=== PATIENT | female | born 1985 | race Caucasian/White ===

== ENCOUNTER 2017-03-08 17:42 | Emergency (ER) | payer OTHER ==
[~2017-03-08] VITALS: Ht 162.6 cm; Wt 74.9 kg
[~2017-03-08 17:42] MED LIST: MTRUNK PO; TYLUNK PO
[2017-03-08 17:52] VITALS: TEMP 37.4; Ht 162.6 cm; Wt 74.9 kg
[2017-03-08] MEDS ORDERED: BUPR8MIS SL (18:10)
[2017-03-08] MEDS ORDERED: DIPH1TAB98 PO (18:11)
[2017-03-08] MEDS ORDERED: DiphenhydrAMINE HCL 50 MG/ML VIAL IV STA (18:11)
[2017-03-08] MEDS ORDERED: ACETAMINOPHEN 325 MG TAB PO STA (18:11)
[2017-03-08 18:25] LABS: BASO % 0.6 %; BASO ABS # 0.05 K/uL (0-0.2); COMPLETE YES; EOS % 0.7 %; HEMATOCRIT 42.7 % (37-47); IG% 0.1 %; LYMPH % 21.8 %; LYMPH ABS # 1.75 K/uL (1.2-3.4); MEAN CELL VOLUME 88.2 fL (80-100); MEAN CORPUSCULAR HEMOGLOBIN 31.2 pg (25-34); MEAN CORPUSCULAR HGB CONC 35.4 g/dl (32-36); MEAN PLATELET VOLUME 11.6 fL (7.4-10.4); MONO % 7.1 %; NEUT % 69.7 %; PLATELET COUNT 202 K/uL (130-400); RED BLOOD COUNT 4.84 M/uL (4.2-5.4); WHITE BLOOD COUNT 8.01 K/uL (4.8-10.8)
[2017-03-08 18:27] LABS: MANUAL MICROSCOPIC REQUIRED? NO; REVIEW REQ? NO; URINE APPEARANCE CLEAR (CLEAR); URINE BILIRUBIN NEG (NEG); URINE COLOR YELLOW; URINE NITRITE NEG (NEG); URINE PH 6.5 (4.5-7.5); URINE SPECIFIC GRAVITY 1.006 (1.000-1.030); UROBILINOGEN NEG (NEG)
[2017-03-08 18:42] LABS: BUN/CREATININE RATIO 11.3 (10-20); CALCIUM 8.8 mg/dl (8.5-10.1); CREATININE 0.68 mg/dl (0.60-1.20); POTASSIUM 3.4 mmol/L (3.5-5.1)
[2017-03-08 20:02] VITALS: BP 147/87; PULSE 99; O2SAT 100
--- NOTE | 2017-03-08 20:05 | DIAGNOSTIC IMAGING REPORT ---
GALLBLADDER-ABD LIMITED CLINICAL HISTORY: eval for gallstones/right hydronephrosis pain. Nausea. TECHNIQUE: Ultrasound COMPARISON STUDY: None FINDINGS: Normal study. Normal gallbladder. Normal pancreas liver and right kidney IMPRESSION: Normal study The above report was generated using voice recognition software. It may contain grammatical, syntax or spelling errors. Electronically signed by: Jeffrey Javed M.D. 03/08/2017 8:04 PM Dictated Date/Time: 03/08/2017 8:03 PM
--- NOTE | 2017-03-08 20:06 | DIAGNOSTIC IMAGING REPORT ---
ABDOMEN LIMITED (US) HISTORY: eval for appe. COMPARISON: None. FINDINGS: The appendix is not identified IMPRESSION: The appendix is not identified The above report was generated using voice recognition software. It may contain grammatical, syntax or spelling errors. Electronically signed by: Jeffrey Javed M.D. 03/08/2017 8:04 PM Dictated Date/Time: 03/08/2017 8:04 PM
--- NOTE | 2017-03-08 20:08 | DIAGNOSTIC IMAGING REPORT ---
ECTOPIC CLINICAL HISTORY: vag bleed 8 weeks bleeding TECHNIQUE: Ultrasound COMPARISON STUDY: None FINDINGS: Uterus is midline with a greatest dimension 10.0 cm. Endometrial thickness is 1.3 cm. A probable gestational sac measuring 3.7 mm at the uterine fundal region. pole is not seen. There right ovary measures 3.3 cm at maximum and contains a 1.4 cm cyst. Left ovary measures 3.2 cm. Both ovaries have normal vascular flow IMPRESSION: 1. Probably early intrauterine gestational sac at the level of the uterine fundus. 2. Estimated gestational age is 5 weeks or less which is too early to evaluate viability. 3. This study should be repeated in approximately 1-2 weeks to confirm viability. 4. 1.4 cm right ovarian cyst. The above report was generated using voice recognition software. It may contain grammatical, syntax or spelling errors. Electronically signed by: Jeffrey Javed M.D. 03/08/2017 8:07 PM Dictated Date/Time: 03/08/2017 8:05 PM
--- NOTE | 2017-03-08 23:44 | EMERGENCY ROOM VISIT NOTE ---
History Report prepared by Juan Antonio: Cristela Belcher Under the Supervision of: Dr. Rasta Huber M.D. First contact with patient: 18:01 Chief Complaint: ABDOMINAL PAIN Stated Complaint: 5 WKS PREG,SHARP PAIN R SIDE BY UMBILICUS Nursing Triage Summary: Pt presents with right sided intermittent pain that began today, described as sharp and numb. Denies n/v/d presently. + lightheaded. Emesis a couple days ago. Denies urinary s/sx. History of Present Illness The patient is a 31 year old female who presents to the Emergency Room with complaints of intermittent right sided abdominal pain starting 4 hours ago. The patient states that it feels like she is bloated, but is having intermittent contractions. She notes that the pain is just to the right of her belly button. She reports that this feels numb. The patient denies a history of kidney stones and a family history of kidney stones. The patient notes that she is . She reports that she has had 3 blood tests done with the last being today. She reports that they will not do an ultrasound until her HG levels are high enough. She reports that her LNMP was January 25. The patient notes that she has had a history of one miscarriage, one , and one child to full term. She states that she has not seen an [employer]. She reports that she was told by the Lab to come to the ED if she started to experience pain and reports that she is going to call to see a doctor tomorrow. The patient denies vaginal bleeding, vaginal discharge, and a fever. She notes that she vomited last night after eating pasta and earlier last week. She reports that this is normal for her during her pregnancies and that she had lost 15 lbs with her daughter. The patient denies any urinary symptoms, abdominal surgery, swelling in legs, a headache, and ever having preeclampsia. Source of History: patient Onset: 4 hours ago Position: abdomen (right sided) Quality: numbness, other (bloated, like contractions ) Timing: intermittent Associated Symptoms: + vomiting, No fevers, No headache, No urinary symptoms Note: The patient denies vaginal discharge, vaginal bleeding, and swelling in her legs. Review of Systems See HPI for pertinent positives & negatives. A total of 10 systems reviewed and were otherwise negative. Past Medical & Surgical Medical Problems: (1) Hx of (2) Hx of one miscarriage Family History Patient reports no known family medical history. Social History Smoking Status: Never Smoker Marital Status: Housing Status: lives with family Current/Historical Medications Scheduled Buprenorphine Hcl-Naloxone Hcl (Suboxone 8-2 Mg), 0.25 TAB SL DAILY Scheduled PRN Diphenhydramine Hcl (Sleep) (Sleep Aid), 25 MG PO HS PRN for Sleep Allergies Coded Allergies: Onion (Verified Allergy, Unknown, Unknown rxn, 03/08/17) Valacyclovir (Verified Allergy, Unknown, Unknown Rxn, 03/08/17) Physical Exam Vital Signs Date Time Temp Pulse Resp B/P (MAP) Pulse Ox O2 Delivery O2 Flow Rate FiO2 03/08/17 20:02 99 18 147/87 100 Room Air 03/08/17 17:52 37.4 91 18 137/83 100 Room Air Physical Exam Constitutional: Vital signs reviewed. Eyes: Pupils are equal round reactive to light. Conjunctiva are noninjected. ENT: Pharynx is clear without erythema or exudate. Mucous membranes are moist. Neck supple without meningeal signs. Respiratory: Clear to auscultation bilaterally. Breath sounds are equal bilaterally. Cardiovascular: Regular rate and rhythm. No rubs or gallops. GI: Soft, nondistended. Bowel sounds are present. Tenderness just right of the umbilicus, not at McBurney point. No guarding. No CVA tenderness. Musculoskeletal: No peripheral edema. No lower extremity tenderness. Integumentary: No cyanosis. Neurological: The patient is awake and alert. No focal deficits. Psychiatric: Anxious appearing. Medical Decision & Procedures ER Provider Diagnostic Interpretation: Radiology results as stated below per my review and the radiologist's interpretation: ECTOPIC CLINICAL HISTORY: vag bleed 8 weeks bleeding TECHNIQUE: Ultrasound COMPARISON STUDY: None FINDINGS: Uterus is midline with a greatest dimension 10.0 cm. Endometrial thickness is 1.3 cm. A probable gestational sac measuring 3.7 mm at the uterine fundal region. pole is not seen. There right ovary measures 3.3 cm at maximum and contains a 1.4 cm cyst. Left ovary measures 3.2 cm. Both ovaries have normal vascular flow IMPRESSION: 1. Probably early intrauterine gestational sac at the level of the uterine fundus. 2. Estimated gestational age is 5 weeks or less which is too early to evaluate viability. 3. This study should be repeated in approximately 1-2 weeks to confirm viability. 4. 1.4 cm right ovarian cyst. The above report was generated using voice recognition software. It may contain grammatical, syntax or spelling errors. Electronically signed by: Jeffrey Javed M.D. 03/08/2017 8:07 PM Dictated Date/Time: 03/08/2017 8:05 PM GALLBLADDER-ABD LIMITED CLINICAL HISTORY: eval for gallstones/right hydronephrosis pain. Nausea. TECHNIQUE: Ultrasound COMPARISON STUDY: None FINDINGS: Normal study. Normal gallbladder. Normal pancreas liver and right kidney IMPRESSION: Normal study The above report was generated using voice recognition software. It may contain grammatical, syntax or spelling errors. Electronically signed by: Jeffrey Javed M.D. 03/08/2017 8:04 PM Dictated Date/Time: 03/08/2017 8:03 PM ABDOMEN LIMITED (US) HISTORY: eval for appe. COMPARISON: None. FINDINGS: The appendix is not identified IMPRESSION: The appendix is not identified The above report was generated using voice recognition software. It may contain grammatical, syntax or spelling errors. Electronically signed by: Jeffrey Javed M.D. 03/08/2017 8:04 PM Dictated Date/Time: 03/08/2017 8:04 PM Laboratory Results 03/08/17 18:10 Red Blood Count 4.84, Mean Corpuscular Volume 88.2, Mean Corpuscular Hemoglobin 31.2, Mean Corpuscular Hemoglobin Concent 35.4, Mean Platelet Volume 11.6, Neutrophils (%) (Auto) 69.7, Lymphocytes (%) (Auto) 21.8, Monocytes (%) (Auto) 7.1, Eosinophils (%) (Auto) 0.7, Basophils (%) (Auto) 0.6, Neutrophils # (Auto) 5.57, Lymphocytes # (Auto) 1.75, Monocytes # (Auto) 0.57, Eosinophils # (Auto) 0.06, Basophils # (Auto) 0.05 03/08/17 18:10 Test 03/08/17 18:10 White Blood Count 8.01 K/uL (4.8-10.8) Red Blood Count 4.84 M/uL (4.2-5.4) Hemoglobin 15.1 g/dL (12.0-16.0) Hematocrit 42.7 % (37-47) Mean Corpuscular Volume 88.2 fL (80-100) Mean Corpuscular Hemoglobin 31.2 pg (25-34) Mean Corpuscular Hemoglobin Concent 35.4 g/dl (32-36) Platelet Count 202 K/uL (130-400) Mean Platelet Volume 11.6 fL (7.4-10.4) Neutrophils (%) (Auto) 69.7 % Lymphocytes (%) (Auto) 21.8 % Monocytes (%) (Auto) 7.1 % Eosinophils (%) (Auto) 0.7 % Basophils (%) (Auto) 0.6 % Neutrophils # (Auto) 5.57 K/uL (1.4-6.5) Lymphocytes # (Auto) 1.75 K/uL (1.2-3.4) Monocytes # (Auto) 0.57 K/uL (0.11-0.59) Eosinophils # (Auto) 0.06 K/uL (0-0.5) Basophils # (Auto) 0.05 K/uL (0-0.2) RDW Standard Deviation 40.3 fL (36.4-46.3) RDW Coefficient of Variation 12.6 % (11.5-14.5) Immature Granulocyte % (Auto) 0.1 % Immature Granulocyte # (Auto) 0.01 K/uL (0.00-0.02) Urine Color YELLOW Urine Appearance CLEAR (CLEAR) Urine pH 6.5 (4.5-7.5) Urine Specific Minerva 1.006 (1.000-1.030) Urine Protein NEG (NEG) Urine Glucose (UA) NEG (NEG) Urine Ketones NEG (NEG) Urine Occult Blood NEG (NEG) Urine Nitrite NEG (NEG) Urine Bilirubin NEG (NEG) Urine Urobilinogen NEG (NEG) Urine Leukocyte Esterase NEG (NEG) Anion Gap 7.0 mmol/L (3-11) Est Creatinine Clear Calc Drug Dose 121.0 ml/min Estimated GFR () 137.0 Estimated GFR (Non- 118.2 BUN/Creatinine Ratio 11.3 (10-20) Calcium Level 8.8 mg/dl (8.5-10.1) Total Bilirubin 0.6 mg/dl (0.2-1) Direct Bilirubin 0.2 mg/dl (0-0.2) Aspartate Amino Transf (AST/SGOT) 14 U/L (15-37) Alanine Aminotransferase (ALT/SGPT) 18 U/L (12-78) Alkaline Phosphatase 50 U/L (45-117) Total Protein 8.6 gm/dl (6.4-8.2) Albumin 4.6 gm/dl (3.4-5.0) Lipase 77 U/L (73-393) Human Chorionic Gonadotropin, Quant 758 mIU/mL Laboratory results as reviewed by me. Medications Administered Medications (Trade) Dose Ordered Sig/Rodolfo Route Start Time Stop Time Status Last Admin Dose Admin Acetaminophen (Tylenol Tab) 650 mg NOW STAT PO 03/08/17 18:11 03/08/17 18:17 DC 03/08/17 18:26 650 MG Diphenhydramine HCl (Benadryl Inj) 25 mg NOW STAT IV 03/08/17 18:11 12 18:17 DC 03/08/17 18:27 25 MG ED Course 1801: The patient was evaluated in room B8. A complete history and physical exam was performed. 1810: Ordered Benadryl Inj 25 mg IV, Tylenol Tab 650 mg PO. 3: I went to reevaluate the patient, but she was in ultrasound. 2019: Upon reevaluation, the patient still has pain that comes and goes. She still has tenderness to the right of the umbilicus. No mass is appreciated. I discussed tonight's findings with her. She is going to have her ACG checked within 48 hours and have an appointment with her doctor in 24 hours. She verbalized agreement of the treatment plan. The patient was discharged home. Medical Decision This is a 31-year-old female who presents with right-sided abdominal pain in the setting of . Differential diagnosis includes ectopic , round ligament pain, appendicitis, kidney stone, cholelithiasis, pancreatitis. I did perform a limited focused review of portions of the patient's old chart on the electronic medical record. The patient has had no recent pertinent visits to this hospital. I did evaluate the patient as noted above. The patient is 6 weeks per her last menstrual period. She is presenting with right-sided abdominal pain starting 4 hours prior to arrival. She states it is located just right of the umbilicus where she is tender on examination. She does not have tenderness at McBurney's point. She does not have a Mendez sign. She does not have any CVA tenderness. She does state that she has been vomiting but this is normal for her when she is . IV access was established. I did treat her with Tylenol. She was also given Benadryl IV for nausea. I did order and personally review the patient's urinalysis as described above. I did order and review the patient's blood work as noted in the electronic medical record. I did order an ultrasound of the abdomen and pelvis. I did review the images myself as well as the radiology report as described above. There is no evidence of ectopic . There is an intrauterine gestational sac but no IUP. Her beta-hCG is under 800 and below the discriminatory zone. She does have a right ovarian cyst. The appendix was not visualized.Her tenderness is more superior and along the right side of the umbilicus and not in the pelvic region. I did reassess her. She is feeling better but states that the pain comes and goes. I did discuss the test results with her and recommended close follow up with her doctor within 24 hours. I also recommended she get another beta hCG within 48 hours. She was discharged in good condition and given return instructions as outlined below. Medication Reconcilliation Current Medication List: was personally reviewed by me Blood Pressure Screening Patient's blood pressure: Elevated blood pressure Blood pressure disposition: Elevated BP felt to be situational Impression Primary Impression: Right sided abdominal pain Additional Impressions: First trimester Right ovarian cyst Scribe Attestation The scribe's documentation has been prepared under my direct and personally reviewed by me in its entirety. I confirm that the note above accurately reflects all work, treatment, procedures, and medical decision making performed by me. Departure Information Dispostion Home / Self-Care Forms HOME CARE DOCUMENTATION FORM, IMPORTANT VISIT INFORMATION Patient Instructions My [facility] Additional Instructions You have been examined and treated today on an emergency basis only. This is not a substitute for, or an effort to provide, complete comprehensive medical care. It is impossible to recognize and treat all injuries or illnesses in a single emergency department visit. It is therefore important that you follow up closely with your physician. The cause of your pain is undetermined at this time. You will need to see her doctor within 24 hours for reevaluation. Will also have to have your hormonal blood test rechecked (beta-hCG) in 48 hours. Call as soon as possible for an appointment. Return for worsening symptoms or if you develop fever, vaginal bleeding or discharge, contractions, rectal bleeding or any other concerning symptoms. Problem Qualifiers
== END 2017-03-08 20:37 | disposition home or self-care (01) ==
LOC: C.EDB 17:43
DX: O26.891 Other specified pregnancy related conditions, first trimester (principal); O34.81 Maternal care for other abnormalities of pelvic organs, first trimester; Z3A.01 Less than 8 weeks gestation of pregnancy; Z87.59 Personal history of other complications of pregnancy, childbirth and the puerperium